=== PATIENT | male | born 1970 | race Caucasian/White ===

== ENCOUNTER 2023-07-30 06:34 | Day surgery (SDC) | payer OTHER ==
[~2023-07-30] VITALS: Ht 180.3 cm; Wt 110.5 kg
[~2023-07-30 06:34] MED LIST: LR 1,000 ML IV SCH
[2023-07-30] MEDS ORDERED: NS 10 ML IV ONE (07:15)
[2023-07-30] MEDS ORDERED: dexAMETHasone 10 MG/ML VIAL ONE (07:15)
[2023-07-30] MEDS ORDERED: Ondansetron 4 MG/2 ML VIAL ONE (07:15)
[2023-07-30] MEDS ORDERED: Ketorolac 30 MG/ML VIAL ONE (07:15)
[2023-07-30] MEDS ORDERED: fentaNYL 50 MCG/ML 2 ML VIAL ONE ×2 (07:15→09:53)
[2023-07-30] MEDS ORDERED: Lidocaine PF 2% (20 MG/ML) 5 ML VIAL ONE (07:15)
[2023-07-30] MEDS ORDERED: Rocuronium 50 MG/5 ML Multi-Dose VIAL ONE (07:16)
[2023-07-30] MEDS ORDERED: Promethazine 25 MG/ML 1 ML VIAL IV PRN (07:45)
[2023-07-30] MEDS ORDERED: hydrALAZINE 20 MG/ML 1 ML VIAL IV PRN (07:45)
[2023-07-30] MEDS ORDERED: Ondansetron 4 MG/2 ML VIAL IV PRN ×2 (07:45→10:30)
[2023-07-30] MEDS ORDERED: HYDROmorphone 2 MG/1 ML VIAL IV PRN (07:45)
[2023-07-30] MEDS ORDERED: droPERidol 2.5 MG/ML 2 ML VIAL IV PRN (07:45)
[2023-07-30] MEDS ORDERED: fentaNYL 50 MCG/ML 2 ML VIAL IV PRN (07:45)
--- NOTE | 2023-07-30 07:54 | NUR ---
ACCUCHECK 61 AT 0645 AND REPORTED TO NINO CAMARA CRNA. ORDER RECEIVED FOR 1/2 AMP OF DEXTROSE AND GIVEN.
[2023-07-30 07:59] VITALS: BP 151/64; PULSE 88; TEMP 97.9
[2023-07-30] MEDS ORDERED: Dextrose 50% Water 25 GM/50 ML SYRINGE IV ONE (08:00)
[2023-07-30] MEDS ORDERED: NOVOLOG FLEX100 U/ML SQ ×2 (08:07→08:09)
[2023-07-30] MEDS ORDERED: ZOCOR 10MG10 MG PO (08:10)
[2023-07-30] MEDS ORDERED: BASAGLAR K100 UNIT/1 SQ (08:10)
[2023-07-30] MEDS ORDERED: PRINIVIL40 MG PO (08:11)
[2023-07-30] MEDS ORDERED: VENTOLIN0.09 MG IH (08:11)
[2023-07-30] MEDS ORDERED: ePHEDrine 50 MG/ML VIAL ONE (08:53)
[2023-07-30] MEDS ORDERED: NORCO 325 MG-51 TAB PO (10:29)
[2023-07-30] MEDS ORDERED: Ibuprofen 600 MG TAB PO PRN (10:30)
[2023-07-30 11:06] VITALS: BP 121/69; PULSE 111; TEMP 97.6
--- NOTE | 2023-07-30 11:06 | NUR ---
The patient arrived back to [facility] from the recovery room at this time. The patient appears alert and oriented and denies any pain or nausea at this time. The patient agrees to try some water. Post operative vital signs were started at this time. The patient's dressings to his abdomen and right groin appear clean, dry and intact. The patient has oxygen in place at 2L per nasal cannula. The patient's signficant other was brought back to be at his bedside. Call light is within reach. The patient denies any further needs. Will continue to monitor the patient.
--- NOTE | 2023-07-30 11:21 | NUR ---
The patient was weaned to 1L of oxygen and appeared to tolerate it well so it was placed on room air. Vital signs appear stable. He appears to be tolerating the water well and denies wanting anything further to eat or drink at this time. Call light remains within reach.
[2023-07-30 11:22] VITALS: BP 123/73; PULSE 93
--- NOTE | 2023-07-30 11:36 | NUR ---
The patient's IV was placed to INT and he is going to get dressed for discharge. The patient's significant other is going to assist him and he was instructed to notify the staff when he is done so discharge instructions can be reviewed.
[2023-07-30 11:39] VITALS: BP 118/69; PULSE 90
--- NOTE | 2023-07-30 11:45 | NUR ---
Discharge instructions were reviewed with the patient and his significant other at this time. They both verbalized understanding and have no questions for the nurse at this time. The patient's IV to his right hand was removed and a pressure dressing was applied to the site. The patient is dressed and ready to be escorted out.
--- NOTE | 2023-07-30 11:55 | NUR ---
The patient was escorted out via wheelchair to a private vehicle by MORENITA Edwards. The patient's belongings and discharge paperwork were sent with him. The patient's significant other, Georgina, is present to drive him home.
[2023-07-30 12:47] VITALS: BP 109/72; PULSE 95
== END 2023-07-30 11:55 | disposition home or self-care (01) ==
LOC: SDCO 06:34
DX: K40.90 Unilateral inguinal hernia, without obstruction or gangrene, not specified as recurrent (principal); N43.3 Hydrocele, unspecified
CPT/HCPCS: C1781; J0690; J1100; J1885; J2405; J2704; J3010; J7120